=== PATIENT | male | born 1990 | race Hispanic/Latino ===

== ENCOUNTER 2017-04-03 10:42 | Emergency (ER) | payer SELFPAY ==
[2017-04-03] MEDS ORDERED: NORCO 5/325 ONE (12:28)
== END 2017-04-03 13:11 | disposition home or self-care (01) ==
LOC: ED 10:42
DX: M54.9 Dorsalgia, unspecified (principal); Z53.21 Procedure and treatment not carried out due to patient leaving prior to being seen by health care provider